=== PATIENT | male | born 1940 | race Caucasian/White ===

== ENCOUNTER 2019-10-02 18:55 | Inpatient (IN) ==
--- NOTE | 2019-10-02 19:20 | PROVIDER DOCUMENTATION ---
HPI-Neurological Disorder - General Chief Complaint: Stroke-Like Symptoms Stated Complaint: WEAKNESS (L) LEG, Time Seen by Provider: 10/02/19 19:10 Source: patient Allergies/Adverse Reactions: Patient Allergies Allergy/AdvReac Type Severity Reaction Status Date / Time codeine [Codeine] AdvReac Severe ANAPHYLAXIS Verified 07/16/19 09:19 morphine AdvReac Severe ANAPHYLAXIS Verified 07/16/19 09:19 Home Medications: Home Medication List Medication Instructions Recorded Confirmed Last Taken Type Ascorbic Acid [Vitamin C] 500 mg PO QHS 02/26/12 07/23/19 07/22/19 21:00 History Aspirin [Ecotrin] 81 mg PO QAM 02/26/12 07/23/19 07/20/19 08:00 History Calcium Carb/Vit D3/Minerals 1 each PO QAM 02/26/12 07/23/19 07/22/19 08:00 History [Calcium 600 + D Tablet] Cider Vinegar [Apple Cider Vinegar] 500 mg PO 02/26/12 07/16/19 07/22/19 21:00 History Cyanocobalamin (Vitamin B-12) 1,000 mcg PO QHS 02/26/12 07/23/19 07/22/19 21:00 History [Vitamin B-12] Garlic [Garlique] 5,000 mcg PO 02/26/12 07/16/19 07/22/19 21:00 History Losartan Potassium 50 mg PO QAM 02/26/12 07/16/19 07/22/19 08:00 History Metoprolol [Lopressor] 25 mg PO BID 02/26/12 07/16/19 07/23/19 06:30 History Multivitamin/Iron/Folic Acid 1 each PO QAM 02/26/12 07/16/19 07/22/19 08:00 History [Multi Complete-Iron Tablet] Ranitidine HCl [Zantac 75] 75 mg PO QAM 02/26/12 07/16/19 07/22/19 08:00 History Ubidecarenone/Vitamin E [Co Q-10 1 each PO QHS 02/26/12 07/16/19 07/22/19 21:00 History 50 mg Softgel] Cholecalciferol (Vitamin D3) 800 unit PO QAM 02/18/19 07/23/19 07/22/19 08:00 History [Vitamin D3] Montelukast [Singulair] 10 mg PO QAM 02/18/19 07/16/19 07/22/19 08:00 History Pramipexole Di-HCl [Pramipexole 0.25 mg PO BID 02/18/19 07/16/19 07/22/19 21:00 History Dihydrochloride] Trazodone [Desyrel] 50 mg PO QHS 02/18/19 07/16/19 07/22/19 21:00 History Fexofenadine [Loni] 180 mg PO QAM 07/16/19 07/16/19 07/22/19 08:00 History Furosemide [Lasix] 20 mg PO QAM 07/16/19 07/23/19 07/22/19 08:00 History Potassium Chloride 20 meq PO BID 07/16/19 07/16/19 07/22/19 21:00 History Tramadol HCl [Ultram] 50 mg PO Q4H PRN PRN #12 tab 07/23/19 Unknown Rx - History of Present Illness-Neuro Nature of Presenting Problem: 79 YOM with PMH of HTN, CHF, CAD s/p CABG, HLD presents with sudden onset dizziness, L side weakness, inability to move his left leg tonight at 5pm while working in the barn. He denies falls, is on a daily ASA. 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 He denies headache, diaphoresis, CP, N/V/D Severity: reports: mild Onset/Duration: reports: 1-3 hours ago Timing: reports: still present Approximate time patient was last seen normal?: 17:00 Character of Altered Mental Status: reports: N/A Any recent trauma/injury?: reports: none Character of Deficits: reports: new weakness, decreased ability to walk New weakness or altered sensation location:: reports: LUE, LLE. denies: right facial, left facial, ascending Cognitive Baseline: alert, oriented x3 Gait Baseline: uses a cane Associated Symptoms: reports: dizziness, weakness (L Sided) Similar Symptoms Previously?: Yes (years ago) Recently seen or treated by another doctor?: No Review of Systems - Adult - REVIEW OF SYSTEMS - ADULT Constitutional: reports: no symptoms reported. denies: chills, fever Eyes: reports: no symptoms reported. denies: decreased vision, blurred vision, double vision, eye pain Ears, Nose, Mouth & Throat: reports: no symptoms reported. denies: ear pain, epistaxis, mouth/dental pain, throat pain Cardiovascular: reports: no symptoms reported. denies: chest pain, palpitations, PND Respiratory: reports: no symptoms reported. denies: cough, dyspnea on exertion, shortness of breath, wheezing Gastrointestinal: reports: no symptoms reported. denies: abdominal pain, diarrhea, nausea, vomiting Genitourinary: reports: no symptoms reported. denies: dysuria, flank pain, frequent UTI's, hesitency Musculoskeletal: reports: no symptoms reported. denies: see HPI, bone pain, back pain, frequent leg cramps, joint pain, joint swelling, muscle aches, muscle weakness, neck pain, other Integumentary: reports: no symptoms reported. denies: see HPI, hives, hair loss, itching, mole changes, nail changes, rash, skin sores/ulcer, skin thickening, other Neurological: reports: see HPI, loss of balance, paresthesia, other (L side weakness) Psychiatric: reports: no symptoms reported. denies: see HPI, anxiety, anti- depressant use, alcohol/drug dependence, depression, emotional problems, insomnia, panic attacks, suicidal thoughts, other Endocrine: reports: no symptoms reported. denies: see HPI, change in skin pigment, excessive sweating, goiter, cold intolerance, heat intolerance, increased hunger, increased thirst, polyuria, other Hematologic/Lymphatic: reports: no symptoms reported. denies: see HPI, blood clots, easy bruising, low blood count, lymphedema, prolonged bleeding, swollen lymph nodes, transfusions, other Allergic/Immunologic: reports: no symptoms reported. denies: see HPI, allergic reactions, allergic rhinitis, asthma, eczema, food allergy, frequent infections, hay fever, hives, positive PPD, urticaria, other Past History - Adult - PAST MEDICAL HISTORY-ADULT Review of Records: reports: Nursing Assessment Review, Social history reviewed & non-contributory. Major Childhood Illnesses: reports: denies history Cardiovascular: reports: denies history Respiratory: reports: denies history Gastrointestinal: reports: denies history Obstetrical/Gynecological: reports: denies history Genitourinary: reports: denies history Musculoskeletal: reports: denies history Neurological: reports: denies history Endocrine/Immune: reports: denies history Other Conditions: reports: denies history - IMMUNIZATION STATUS Childhood Immunizations: See Nurse Assessment Flu Vaccine: See Nurse Assessment - FAMILY HISTORY Family History: reviewed, not pertinent Physical Exam- Neurological - Physical Exam-Neuro Initial Vital Signs Reviewed: Yes General Appearance: appears well, alert, no apparent distress Eye Exam: bilateral eye: normal inspection, PERRL, EOMI HENMT: normocephalic/atraumatic, moist mucous membranes, normal ENT inspection Head Injury: no evidence of injury Neck: non-tender, full range of motion, supple Respiratory: chest non-tender, lungs clear, normal breath sounds, no pleuratic chest pain, no respiratory distress, no accessory muscle use Cardiovascular: normal peripheral pulses, regular rate, rhythm, no edema, no gallop, no JVD, no murmur Abdominal Exam: normal bowel sounds, non tender, soft Lymphatic: no adenopathy Peripheral Pulses: radial (R): 2+, radial (L): 2+ Extremity: normal range of motion, non-tender, normal gait tester sound Exam: normal hearing, normal speech, PERRL. negative: abnormal speech, facial droop, facial weakness, tongue deviation to R, tongue deviation to L Coordination/Gait: normal finger to nose. negative: normal gait (uses cane) Motor/Sensory: no motor deficit, no sensory deficit, no pronator drift Neurologic: grossly normal. negative: aphasia, motor weakness, sensory deficit Integumentary: normal color, normal turgor, warm/dry Psych/Mental Status: normal mood/affect, oriented x 3 - Glascow Coma Scale Best Eye Response: (4) open spontaneously Best Verbal Response: (5) oriented Best Motor Response: (6) obeys commands Progress - PLAN OF CARE/RESULTS Progress/Plan/Lab Results: Vital Signs - 8 hr 10/02/19 19:07 Temperature 98.3 F Pulse Rate 76 Respiratory Rate 20 Blood Pressure 141/84 O2 Sat by Pulse Oximetry 98 Laboratory Results - last 24 hr 10/02/19 10/02/19 10/02/19 19:05 19:54 19:54 WBC RBC Hgb Hct MCV MCH MCHC RDW Std Deviation Plt Count MPV Immature Gran % (Auto) Neut % (Auto) Lymph % (Auto) Ware % (Auto) Eos % (Auto) Baso % (Auto) Immature Gran # (Auto) Neut # (Auto) Lymph # (Auto) Ware # (Auto) Eos # (Auto) Baso # (Auto) PT INR PTT (Actin FS) Sodium 141 Potassium 4.3 Chloride 101 Carbon Dioxide 25 Anion Gap 15 BUN 22 Creatinine 1.0 Estimated GFR/1.73 m2 > 60 BUN/Creatinine Ratio 22 Glucose 159 H POC Glucose 204 H Calculated Osmolality 288 Calcium 9.3 Total Bilirubin 0.39 AST 26 ALT 20 Alkaline Phosphatase 95 Troponin T High Sens 8 Total Protein 6.8 Albumin 3.9 Globulin 2.9 Albumin/Globulin Ratio 1.3 10/02/19 10/02/19 10/02/19 19:54 19:54 20:25 WBC 6.00 RBC 5.00 Hgb 14.5 Hct 43.9 MCV 87.8 MCH 29.0 MCHC 33.0 RDW Std Deviation 14.0 Plt Count 179 MPV 10.4 Immature Gran % (Auto) 0.0 Neut % (Auto) 59.6 Lymph % (Auto) 25.7 Ware % (Auto) 10.7 H Eos % (Auto) 3.7 Baso % (Auto) 0.3 Immature Gran # (Auto) 0.00 Neut # (Auto) 3.58 Lymph # (Auto) 1.54 Ware # (Auto) 0.64 H Eos # (Auto) 0.22 Baso # (Auto) 0.02 PT 13.1 INR 0.99 PTT (Actin FS) 27.0 Sodium Potassium Chloride Carbon Dioxide Anion Gap BUN Creatinine Estimated GFR/1.73 m2 BUN/Creatinine Ratio Glucose POC Glucose 125 H Calculated Osmolality Calcium Total Bilirubin AST ALT Alkaline Phosphatase Troponin T High Sens Total Protein Albumin Globulin Albumin/Globulin Ratio Orders Category Date Time Status Cardiac Monitoring DIRECTED Care 10/02/19 19:11 Active Finger Stick Blood Sugar (ED) DIRECTED Care 10/02/19 19:11 Active Saline Loc NOW Care 10/02/19 19:11 Active CHEST-PORTABLE [RAD] Stat Exams 10/02/19 19:[address] HEAD W/O CONTRAST [CT] Stat Exams 10/02/19 19:11 Completed CBC WITH ELECTRONIC DIFF [HEME] Stat Lab 10/02/19 19:54 Completed COMPREHENSIVE METABOLIC PANEL [CHEM] Stat Lab 10/02/19 19:54 Completed PROTIME WITH INR [COAG] Stat Lab 10/02/19 19:54 Completed PTT [COAG] Stat Lab 10/02/19 19:54 Completed TROPONIN T HIGH SENSITIVITY Stat Lab 10/02/19 19:54 Completed URINALYSIS W/POSS RFLX CULT [URINALYSIS] Stat Lab 10/02/19 19:11 Uncollected URINE DRUG SCREEN Stat Lab 10/02/19 19:11 Uncollected Aspirin Med 10/02/19 20:15 Discontinued 325 mg PO NOW ONE EKG [EKG] Stat Ther 10/02/19 19:11 Ordered Result Diagrams: 10/02/19 19:54 10/02/19 19:54 - EKG 1 Time of EKG reading by physician:: 20:20 EKG Read and Signed by:: Ana Paula Rubio EKG Interpretation (*Must complete 3 of following elements*): Abnormal Rate: 94 Rhythm: NSR [place]: normal QRS: normal OR Interval: normal ST Wave: non-specific ST changes Prior EKG Comparison: no prior EKG - XRAY 1 XRAY Study: Chest Impression: See EMR Report ( EXAM: CHEST-PORTABLE INDICATION: stroke like symptoms TECHNIQUE: One view COMPARISON: 09/02/2019 FINDINGS: There is minimal subsegmental atelectasis at the left lung base. The lungs are grossly clear, otherwise. There is no discrete pleural fluid collection or pneumothorax. There are stable CABG changes. The cardiomediastinal silhouette and central vasculature are unremarkable, otherwise. IMPRESSION: Mild left basilar subsegmental atelectasis. No definite acute chest pathology by plain radiograph, otherwise. Electronically signed by Virgilio Holder 10/02/2019 8:02 PM 10/02/192001 Interpreting Physician: Vigrilio Holder MD Dictated Date/Time: 10/02/192000 cc: Neva Carias; Jennifer Chaves MD) - CT/MRI 1 CT Study: Head Impression: See EMR Report ( EXAM: CT HEAD W/O CONTRAST INDICATION: stroke like symptoms TECHNIQUE: This exam was performed using automated exposure control, adjustment of mA or kV according to patient size, and/or use of iterative reconstruction technique. COMPARISON: None. FINDINGS: There is patchy low attenuation in the periventricular and subcortical white matter suggesting moderate microangiopathy. There is no definite acute infarct given the limited sensitivity of CT versus MRI. There is no discrete intracranial mass, mass effect, or intracranial hemorrhage. There is mild ethmoid and left maxillary sinus mucosal thickening. Surrounding soft tissues and bony structures are essentially unremarkable, otherwise. IMPRESSION: Moderate chronic appearing white matter changes as described. No definite acute intracranial pathology by CT. Electronically signed by Virgilio Holder 10/02/2019 7:39 PM 10/02/191938 Interpreting Physician: Virgilio Holder MD Dictated Date/Time: 10/02/191937 cc: Neva Carias; Jennifer Chaves MD) - CONSULTS/PCP/HOSPITALIST Notification #1 *Consult/PCP/Hospitalist*: Dr. Mayer Time Discussed: 21:03 Consult Disposition: Admit (TIA) Departure - Departure Date of Disposition Decision: 10/02/19 Time of Disposition Decision: 21:03 DIAGNOSIS: TIA (transient ischemic attack) Disposition: ADMITTED INPATIENT 09 Certified Medical Emergency: Emergent Condition: Stable Referrals and Follow-Ups: Jennifer Chaves MD [Primary Care Provider] - - Critical Care Note This patient required my direct & personal management of CC.: No Attestation - Physician/ MARJ Attestation Patient care was provided by Advanced Practice Provider:: Yes Advanced Practice Provider:: Neva Carias Advanced Practice Provider documentation review:: The Mid-level provider documentation, treatment plan and medical decision making was reviewed by the physician who agrees with all treatment and medical decision making by the P. The physician spent face to face time with patient:: Yes (Dr. Rubio) Advanced Practice Provider documentation review:: Supervising physician onsite and consulted in the evaluation and care of this patient. The physician did have a face to face encounter with the patient. - NIH Stroke Scale NIH Type: Initial Evaluation Level of Consciousness: 0-Alert LOC Questions (ask month and age): 0-Answers Both Correctly LOC Commands (ask to open & close eyes;make a fist, let go): 0-Obeys Both Correctly Best Gaze (horizontal eye movement): 0-Normal Visual (use finger movement, counting or visual threat): 0-No Visual Loss Facial Palsy (show teeth or raise eyebrows & close eyes tght: 0-Symmetrical Movement Motor Function-left arm: 0-Normal Motor Function-right arm: 0-Normal Motor Function-left le-Normal Motor Function-right le-Normal Limb Ataxia(cepzia-zual-qmzmls, or heel to davis): 0-No Ataxia Sensory(pin prick to face,arms,trunk,legs-compare side/side): 0-No Ataxia Best Language(name item/read sentence.Ex-Down to Earth): 0-No Aphasia Dysarthria(Pt read words or say words Ex.Mama,Tip-Top,Thanks: 0-Normal Articulation Extinction and Inattention: 0-Normal NIH Total Score: 0 Stroke tPA Guidelines - Inclusion Criteria for IV tPA 18 years old or older: Yes Ischemic stroke with measurable deficit: No Onset <3 hours ago *OR* 3-4.5 hours ago: No - Exclusion Criteria for IV tPA Evidence of intracranial hemorrhage on CT: No Presentation suggest SAH: No CT reveals defined area of hypodensity: No Evidence of AVM, neoplasm, aneurysm: No Seizure at stroke onset: No Active internal bleeding or acute trauma: No Platelet Count Less Than 100,000: No Heparin Within Last 48 HRS (PTT >Lab normal limits): No INR > 1.7 (warfarin use): No Use IIB/IIIA inhibitors within 24 hours: No Serious Head Trauma Within Last 3 Months: No Arterial Puncture Within Last 7 Days: No Lumbar Puncture Within Last 7 Days: No Repeated systolic Blood Pressure >185 or Diastolic >110: No - Additional Exclusion Criteria for IV tPA Currently on Coumadin: No Patient older than 80: Yes Prior stroke and diabetes: No Baseline NIHSS score > 25: No
--- NOTE | 2019-10-02 19:42 | Diag Imaging Result Doc PS360 ---
EXAM: CT HEAD W/O CONTRAST INDICATION: stroke like symptoms TECHNIQUE: This exam was performed using automated exposure control, adjustment of mA or kV according to patient size, and/or use of iterative reconstruction technique. COMPARISON: None. FINDINGS: There is patchy low attenuation in the periventricular and subcortical white matter suggesting moderate microangiopathy. There is no definite acute infarct given the limited sensitivity of CT versus MRI. There is no discrete intracranial mass, mass effect, or intracranial hemorrhage. There is mild ethmoid and left maxillary sinus mucosal thickening. Surrounding soft tissues and bony structures are essentially unremarkable, otherwise. IMPRESSION: Moderate chronic appearing white matter changes as described. No definite acute intracranial pathology by CT. Electronically signed by Virgilio Holder 10/02/2019 7:39 PM
--- NOTE | 2019-10-02 20:05 | Diag Imaging Result Doc PS360 ---
EXAM: CHEST-PORTABLE INDICATION: stroke like symptoms TECHNIQUE: One view COMPARISON: 09/02/2019 FINDINGS: There is minimal subsegmental atelectasis at the left lung base. The lungs are grossly clear, otherwise. There is no discrete pleural fluid collection or pneumothorax. There are stable CABG changes. The cardiomediastinal silhouette and central vasculature are unremarkable, otherwise. IMPRESSION: Mild left basilar subsegmental atelectasis. No definite acute chest pathology by plain radiograph, otherwise. Electronically signed by Virgilio Holder 10/02/2019 8:02 PM
[2019-10-02 20:14] LABS: BASO# 0.02 X1000 (0.0-0.2); BASO% 0.3 % (0.0-0.8); EOS# 0.22 X1000 (0.0-0.7); EOS% 3.7 % (0.0-10.0); HEMATOCRIT 43.9 % (42.0-52.0); HEMOGLOBIN 14.5 g/dL (14.0-18.0); LYMPH# 1.54 X1000 (1.2-3.4); LYMPH% 25.7 % (20.5-51.1); MCV 87.8 FL (81-99); MONO# 0.64 X1000 (0.11-0.59); MONO% 10.7 % (1.7-9.3); MPV 10.4 FL (7.4-10.4); NEUT# 3.58 X1000 (1.4-6.5); NEUT% 59.6 % (42.2-75.2); PLT 179 X1000 (130-400)
[2019-10-02] MEDS ORDERED: ASPIRIN PO ONE (20:15)
[2019-10-02 20:22] LABS: INR 0.99; PROTIME 13.1 Seconds (11.0-16.0)
[2019-10-02 20:44] LABS: AGAP 15; ALB/GLOB RATIO 1.3; ALBUMIN 3.9 g/dL (3.5-5.0); ALKALINE PHOSPHATASE 95 U/L (32-122); BUN 22 mg/dL (8-22); CALCIUM 9.3 mg/dL (8.8-10.2); CHLORIDE 101 mmol/L (98-107); COSMO 288; ESTIMATED GFR > 60; GLUCOSE 159 mg/dL (70-104); GOT 26 U/L (10-34); GPT 20 U/L (10-44); POTASSIUM 4.3 mmol/L (3.5-5.1); SODIUM 141 mmol/L (136-145); TCO2 25 mmol/L (25-35); TOTAL BILIRUBIN 0.39 mg/dL (0.20-1.00); TOTAL PROTEIN 6.8 g/dL (6.3-8.3)
[2019-10-02 21:18] LABS: URINE SOURCE CLEAN CATCH
[2019-10-02 22:02] LABS: BILIRUBIN URINE NEGATIVE (NEGATIVE); BLOOD URINE NEGATIVE (NEGATIVE); COLOR YELLOW; GLUCOSE URINE NEGATIVE (NEGATIVE); KETONE URINE NEGATIVE (NEGATIVE); LEUKOCYTES URINE NEGATIVE (NEGATIVE); NITRITE URINE NEGATIVE (NEGATIVE); PROTEIN URINE NEGATIVE (NEGATIVE); SP GRAVITY URINE 1.025; TURBIDITY URINE CLEAR (CLEAR); UROBILINOGEN URINE NORMAL (NORMAL)
[2019-10-02 22:06] LABS: UR EPITHELIAL CELLS <10 /HPF (<10); URINE RBC <10 /HPF (<10); URINE WBC <10 /HPF (<10)
[2019-10-02 22:07] LABS: URINE BACTERIA NEGATIVE /HPF
[2019-10-02 22:27] LABS: UR AMPHETAMINES QUAL NONE DETECTED (NONE DETECT); UR BARBITUATES QUAL NONE DETECTED (NONE DETECT); UR BENZODIAZEPIN QUAL NONE DETECTED (NONE DETECT); UR CANNABINOIDS QUAL NONE DETECTED (NONE DETECT); UR COCAINE QUAL NONE DETECTED (NONE DETECT); UR METHADONE QUAL NONE DETECTED (NONE DETECT); UR OPIATES QUAL NONE DETECTED (NONE DETECT); UR OXYCODONE QUAL NONE DETECTED (NONE DETECT); UR PCP QUAL NONE DETECTED (NONE DETECT)
--- NOTE | 2019-10-02 22:33 | HISTORY AND PHYSICAL ---
PRIMARY CARE PROVIDER: Jennifer Chaves MD CHIEF COMPLAINT: Left-sided weakness. HISTORY OF PRESENTING ILLNESS: An 79-year-old male with a history of hypertension, CHF and coronary artery disease, who presented to the emergency department with 1-day history of left- sided weakness. The patient states that it started earlier. He felt his leg feel numb and he could not move it. He states that he nearly fell and got concerned, and subsequently had come to the emergency department. In the ED he was evaluated and it seems that his symptoms have resolved; however, due to his presenting symptoms he will require admission for further management. At the time of my examination the patient denied any headache, fever, chills, chest pain, shortness of breath, hemoptysis, melena or weight changes. States he feels better. PAST MEDICAL HISTORY: Includes hypertension, CHF, coronary artery disease. PAST SURGICAL HISTORY: Coronary artery bypass. ALLERGIES: Morphine and codeine. MEDICATIONS: Current medications include aspirin 81 mg p.o. daily, losartan 50 mg p.o. q.a.m., metoprolol 25 mg p.o. b.i.d., ranitidine 75 mg p.o. q.a.m., Singulair 10 mg p.o. q.a.m., pramipexole 0.25 mg p.o. b.i.d., trazodone 50 mg p.o. at bedtime, Lasix 20 mg p.o. q.a.m., tramadol 50 mg p.o. q.4 hours p.r.n. SOCIAL HISTORY: He is a former smoker. History of alcohol use in the past. Denies any illicit drug use. FAMILY HISTORY: No history of coronary disease. REVIEW OF SYSTEMS: Fourteen-point review of systems is as listed in HPI. Other systems negative. PHYSICAL EXAMINATION: GENERAL: Cooperative, friendly male. He is resting more comfortably now. He is speaking in complete sentences. VITAL SIGNS: Temperature 98.3 degrees, pulse 76, respirations 20, blood pressure 141/84. HEENT: Atraumatic, normocephalic. Extraocular movements intact. PERRLA. NECK: Supple. CHEST: Clear to auscultation. CARDIOVASCULAR: Regular rate and rhythm. ABDOMEN: Soft. Positive bowel sounds. EXTREMITIES: No edema. NEUROLOGIC: He is awake, alert and oriented x3. Speech is intact. Strength 5/5 in all extremities. GENITOURINARY: No bladder distention. SKIN: Warm. LABORATORY DATA: Sodium 141, potassium 4.3, chloride 101, CO2 is 25, BUN is 22, creatinine is 1.0, glucose 159. WBC 6.0, hemoglobin 14.5, hematocrit 43.9, platelets 179,000. DIAGNOSTIC DATA: CT of the head: Moderate chronic-appearing white matter changes. No acute intracranial pathology. ASSESSMENT: This is an 79-year-old elderly male with a history of hypertension, congestive heart failure and coronary artery disease, who presented to the emergency department with 1-day history of having left-sided weakness. He was evaluated in the emergency department, and due to his presenting symptoms he will need admission for further management. 1. Transient ischemic attack. Will need to rule out cerebrovascular accident. 2. Coronary artery disease. 3. Hypertension. PLAN: 1. We will admit the patient to the medical floor with telemetry. 2. Continue with stroke workup. 3. We will check an MRI of the brain. 4. Consult Neurology. 5. Restart other home medications. Monitor on telemetry. 6. We will monitor blood pressure closely. 7. We will put the patient on DVT prophylaxis with SCDs. 8. We will continue to follow, reassess and make further recommendations based on the patient's clinical course. cc: Kee Mayer MD
--- NOTE | 2019-10-02 23:07 | EKG Report ---
Test Performed on : 10/02/2019 8:16:16 PM Test Reason : Stroke like symptoms Blood Pressure : / mmHG Vent. Rate : 094 BPM Atrial Rate : 094 BPM P-R Int : 208 ms QRS Dur : 102 ms QT Int : 450 ms P-R-T Axes : 000 -20 -25 degrees QTc Int : 562 ms Normal sinus rhythm. Nonspecific ST and T wave abnormality Abnormal ECG When compared with ECG of 02-OCT-2019 20:15, (Unconfirmed) OH interval has decreased Nonspecific T wave abnormality has replaced inverted T waves in Inferior leads T wave inversion no longer evident in Lateral leads Unconfirmed Result
[2019-10-03 07:25] LABS: BASO# 0.03 X1000 (0.0-0.2); BASO% 0.5 % (0.0-0.8); EOS# 0.25 X1000 (0.0-0.7); HEMOGLOBIN 14.3 g/dL (14.0-18.0); LYMPH# 1.73 X1000 (1.2-3.4); LYMPH% 27.6 % (20.5-51.1); MCH 28.3 PG (27-31); MCHC 32.5 g/dL (33-37); MCV 87.1 FL (81-99); MONO# 0.55 X1000 (0.11-0.59); MONO% 8.8 % (1.7-9.3); MPV 10.4 FL (7.4-10.4); NEUT% 59.1 % (42.2-75.2); PLT 170 X1000 (130-400); RBC 5.05 XMIL (4.7-6.1); RDW 13.7 % (11.5-14.5); WBC 6.26 X1000 (4.8-10.8)
[2019-10-03 07:57] LABS: AGAP 10; BUN 21 mg/dL (8-22); CALCIUM 8.8 mg/dL (8.8-10.2); CHLORIDE 103 mmol/L (98-107); COSMO 282; CREATININE 0.8 mg/dL (0.7-1.2); ESTIMATED GFR > 60; GLUCOSE 91 mg/dL (70-104); POTASSIUM 4.1 mmol/L (3.5-5.1); SODIUM 140 mmol/L (136-145); TCO2 27 mmol/L (25-35)
[2019-10-03] MEDS ORDERED: LASIX PO SCH (09:00)
[2019-10-03] MEDS ORDERED: ASPIRIN PO SCH (09:00)
[2019-10-03] MEDS ORDERED: LOPRESSOR PO SCH (09:00)
[2019-10-03] MEDS ORDERED: COZAAR PO SCH (09:00)
--- NOTE | 2019-10-03 11:51 | Diag Imaging Result Doc PS360 ---
EXAM: MRI BRAIN W/WO CONTRAST INDICATION: stroke COMPARISON: CT head dated 10/02/2019 FINDINGS: There is a tiny focus of restricted diffusion associated with the right basal ganglion on image 18 of series 8 suggesting a very small acute lacunar infarct. This cannot be appreciated on the recent CT. There is associated slight increased T2/FLAIR signal in this region. There is patchy T2/FLAIR hyperintensity in the periventricular and subcortical white matter is well suggesting at least moderate microangiopathy. There is decreased cortical signal associated with the anterior frontal lobes bilaterally but much more prominent on the left that is best seen on the coronal T2 gradient sequence. This may represent a trace hemosiderin from a distant focal hemorrhage in the past. There is no evidence of acute hemorrhage. No intracranial mass or mass effect is appreciated. There is no evidence of abnormal intracranial enhancement. There is mild ethmoid and left maxillary sinus mucosal thickening. Surrounding soft tissues and bony structures are essentially unremarkable, otherwise. IMPRESSION: 1.Tiny acute lacunar infarct involving the right basal ganglion. 2.Evidence of moderate white matter microangiopathy. 3.Low attenuation mainly on gradient involving the cortex of the frontal lobes bilaterally, mainly on the right, which could represent trace hemosiderin related to a distant hemorrhage. Electronically signed by Virgilio Holder 10/03/2019 11:48 AM
[2019-10-03] MEDS ORDERED: ULTRAM PO PRN (12:42)
[2019-10-03] MEDS: LIPITOR PO SCH (13:41)
--- NOTE | 2019-10-03 14:32 | NEUROLOGY CONSULTATION ---
DATE: 10/03/2019 HISTORY OF PRESENT ILLNESS: Mr. Olmos is 79 years old and it sounds like he had acute ischemic neurologic event yesterday. History from the patient is that he was working in his barn and feeling well. He noticed sudden onset of left leg weakness and gait difficulty. Speech was slurred. He used a piece of cedar as a walking cane to help him get back into the house. He rested and within 45 minutes felt completely recovered. There was never vision disturbance, facial asymmetry, trouble chewing or swallowing, headache, altered awareness, unconsciousness. He did not fall. He continues to feel completely recovered today. He reports no prior similar spells. He reports being told he might have had a stroke in the past, but he does not recall details. He does not recall any prior focal neurologic deficit. There is no history of serious head injury. He has never had a seizure. He denies ethanol abuse. He quit smoking cigarettes in the remote past. He takes medicine for hypertension. He reports he took a medicine for cholesterol in the past and did not tolerate that, so has managed with nonprescription product recently. He has never had diabetes mellitus diagnosed. There is history of CABG. I reviewed his home medication list. He told me supervises that and he is not certain about details, but believes he takes everything as directed. He believes he has not taken the tramadol recently. He does take daily aspirin. Workup here includes brain MRI today showing evidence of small acute infarction in the right basal ganglia. There are the usual scattered white matter changes bilaterally. He has had carotid ultrasound and echocardiogram, and those reports are pending. Lab shows blood sugars 100s to 200s. Chemistry is otherwise unremarkable. Urine drug screen was all negative. He has been afebrile. Heart rate has been stable, 70s-80s. Systolic blood pressures have ranged 130s-150s. On exam now, Mr. Olmos is awake, alert, attentive, appropriate. Speech is not significantly dysarthric. Language function is intact on brief bedside testing. Recent and remote memory are good. He is oriented. Head and neck are unremarkable. Visual marrero are full to confrontational finger counting. Extraocular movements are full. Facial motility is a little bit diminished bilaterally, but symmetric. Facial sensation is intact to pinprick and light touch testing. Gag is intact. Tongue is midline. He can hear. He has some shoulder joint problems, a little worse on the right, but good shoulder shrug bilaterally. Strength is normal in the arms and legs. He did well on finger- to-nose testing bilaterally. He reports good pinprick and light touch appreciation over the hands and legs symmetrically. Reflexes 1+ symmetrically at the wrists, 2+ at the knees, trace at the ankles. Plantar response is silent bilaterally. IMPRESSION: History of transient left-sided weakness and slurred speech, all resolving in less than an hour. There is imaging evidence of acute subcortical non dominant right hemisphere infarction to account for this deficit. He has risk factors as outlined above, and he may also have diabetes mellitus based on the blood sugars recorded here. I do not have any urgent suggestions. Further plans will depend on the carotid and echocardiogram reports. If these are not remarkable, I would plan to discharge him with his daily aspirin and aggressive management of his other risk factors. Since his deficit has completely resolved and there is imaging evidence of small subcortical lesion, I do not think we have to permit hypertension at this point. A case could be made for adding clopidogrel short-term, but I don't think the data are sufficient to make that recommendation with presumed small vessel disease. He should have aggressive blood sugar evaluation and treat diabetes mellitus, if present. I will be glad to see Mr. Olmos as an outpatient, if needed. Thanks for asking Neurology to see him. cc: MD WIL Godwin III
[2019-10-03 15:43] LABS: HEMOGLOBIN A1C 5.6 % (4.8-6.0)
--- NOTE | 2019-10-03 18:26 | PROGRESS NOTE ---
DATE: 10/03/2019 INTERVAL HISTORY: No acute events overnight. Mr. Olmos denies new complaints. He states he does not have any more weakness of the left upper or lower extremities. He states when he presented initially, he had left lower extremity weakness, but after coming to the emergency room he has resolved. We discussed about MRI finding stroke. We discussed about risk factor for stroke. We discussed about treating him for high cholesterol. We discussed about pending echocardiogram ultrasound carotid results. I answered all of his questions. VITALS: Temperature 98.4 degrees, pulse 101, respiratory rate 18, blood pressure 156/85, saturating 98% on room air. PHYSICAL EXAMINATION: Mr. Olmos is not in acute distress. Oral cavity is moist. Lungs: Air entry bilaterally equal. Cardiovascular: No wheeze, rhonchi, crackles. S1, S2 normal. No murmur, rub, or gallop. Abdomen: Soft, nontender. No lower extremity edema. He is alert and oriented x3. His pupils are bilaterally equal reacting to light. Extraocular movement is intact both vertically and horizontally. No facial asymmetry. Shoulder shrug is normal. Speech and cough is normal without any dysarthria. His sensation intact bilateral face. Upper and lower extremities: His tone is equal and adequate bilaterally. His power is 5/5 bilateral upper and lower extremity. He is alert and oriented x3 without any confusion. LABORATORIES: Remarkable for hemoglobin A1c of 5.6, cholesterol of 168, LDL of 132. No microbiological data. IMAGING: Brain MRI suggests tiny acute lacunar infarct involving right basal ganglia, moderate white matter microangiopathy. ASSESSMENT AND PLAN: 1. 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 He does not have any more residual abnormality neurologically on gross examination. We discussed about risk factor modification including weight reduction, treating his cholesterol, taking better control of blood pressure. He is in agreement with it. Continue low-dose aspirin and atorvastatin. Follow up echocardiogram, ultrasound carotid results. 2. History of coronary artery bypass graft. Continue home metoprolol, losartan, aspirin. 3. Others. Continue home ascorbic acid, trazodone, calcium, vitamin D supplementation and vitamin B12 supplementation with multivitamins. DISPOSITION: I am awaiting echocardiogram and ultrasound carotid results. Based on that, I would anticipate discharge in next 24 hours. Plan of care discussed with Mr. Olmos. He is in agreement with the plan. His questions have been answered. cc: Sky Barboza MD
[2019-10-03] MEDS ORDERED: VITAMIN C PO SCH (21:00)
[2019-10-03] MEDS ORDERED: DESYREL PO SCH (21:00)
[2019-10-03] MEDS: MIRAPEX PO SCH (21:33)
[2019-10-03] MEDS: LOPRESSOR PO SCH (21:33)
[2019-10-04] MEDS: LIPITOR PO SCH (08:21)
[2019-10-04] MEDS: LOPRESSOR PO SCH (08:22)
[2019-10-04] MEDS: MIRAPEX PO SCH (08:22)
[2019-10-04] MEDS ORDERED: ALLEGRA PO SCH (09:00)
[2019-10-04] MEDS ORDERED: KLOR-CON PO SCH (09:00)
[2019-10-04] MEDS ORDERED: VITAMIN B-12 PO SCH (09:00)
[2019-10-04] MEDS ORDERED: ASPIRIN EC PO SCH (09:00)
[2019-10-04] MEDS ORDERED: SINGULAIR PO SCH (09:00)
[2019-10-04] MEDS ORDERED: CENTRUM TABLET PO SCH (09:00)
[2019-10-04] MEDS ORDERED: COZAAR PO SCH (09:00)
[2019-10-04] MEDS ORDERED: CALTRATE 600 + D PO SCH (09:00)
[2019-10-04] MEDS ORDERED: VITAMIN D PO SCH ×2 (09:00)
[2019-10-04 12:27] VITALS: BP 124/76
--- NOTE | 2019-10-04 14:00 | Diag Imaging Result Doc PS360 ---
EXAM: CT ANGIOGRAM HEAD/NECK HISTORY: Recent right basal ganglia CVA. TECHNIQUE: 1. CT angiogram neck with intravenous contrast. Arteriogram protocol with MIP images. 2. CT angiogram head with intravenous contrast. Arteriogram protocol with MIP images. COMPARISON: None. FINDINGS: Angiogram neck: Normal right common carotid artery. Small amount of plaque in the bulb. Narrowing less than 40%. Moderate plaque in the mid and distal left common carotid artery with narrowing of 40%. Plaque in the bulb with narrowing of 40%. Normal flow within each vertebral artery. Angiogram head: Normal flow within each distal internal carotid artery. Normal filling of the anterior and middle cerebral arteries. Normal flow in the basilar artery and posterior cerebral arteries. No occlusion. No stenosis. No aneurysm. IMPRESSION: Neck: Mild stenosis within each proximal internal carotid artery and the distal left common carotid artery approaching 40%. Head: No occlusion or stenosis within the [place]. This exam was performed using automated exposure control, adjustment of mA or kV according to patient size, and/or use of iterative reconstruction technique. Electronically signed by Faraz Chinchilla 10/04/2019 1:58 PM
--- NOTE | 2019-10-04 14:27 | ECHO REPORT ---
ORDER DATE: 10/03/2019 INDICATION FOR THE STUDY: CVA. Evaluate for thrombus. FINDINGS: 1. The right atrium is poorly visualized. 2. Mild tricuspid regurgitation. Insufficient data to accurately estimate the RV systolic pressure. 3. Normal RV size and systolic function. 4. Mild pulmonic insufficiency. 5. Normal left atrial size. Measured at 3.8 cm. 6. No mitral valve prolapse. Trace mitral regurgitation. No evidence of mitral stenosis. 7. Normal LV size, end-diastolic dimension of 4.8 cm. Normal wall thicknesses with intraventricular septal wall thickness of 1 cm. Normal ejection fraction estimated at 55%. Segmental wall motion analysis is very difficult on this study due to poor resolution of the endocardial borders as well as multiple off axis views. There is the suggestion of inferior basilar and inferior mid hypokinesis. This has been noted on previous studies. 8. Aortic valve appears to open well although it does appear sclerotic. It is not stenotic. There is mild insufficiency. The valve is trileaflet. 9. Aorta appears normal in visualized segments. 10. No pericardial effusion seen. cc: MD Sky Michel MD MTDD
--- NOTE | 2019-10-04 16:53 | DISCHARGE SUMMARY ---
ADMISSION DATE: 10/02/2019 DISCHARGE DATE: 10/04/2019 DISCHARGE DISPOSITION: Home. DISCHARGE CONDITION: Hemodynamically stable. He is alert and oriented x3. He does not have any sensory or motor deficit on any of the limbs. He does not have any facial asymmetry. His speech is normal. He does not have dysdiadochokinesia. DISCHARGE DIAGNOSIS: Acute CVA of the right basal ganglia. OTHER DIAGNOSES: 1. History of coronary artery disease status post coronary artery bypass graft. 2. Essential hypertension. 3. Insomnia. 4. Vitamin D deficiency. DISCHARGE MEDICATIONS: 1. Trazodone 50 mg at nighttime. 2. Ascorbic acid 500 mg at nighttime. 3. Fluticasone 1 spray inhaled b.i.d. 4. Fexofenadine 180 mg in the morning time. 5. Calcium vitamin D 1 tablet in the morning time. 6. Co-Q-10 at 100 mg at nighttime. 7. Aspirin 81 mg daily. 8. Furosemide 20 mg in the morning time. 9. Metoprolol 25 mg b.i.d. 10. Losartan 50 mg in the morning time. 11. Potassium 10 mEq daily. 12. Pramipexole 0.25 mg b.i.d. 13. Montelukast 10 mg in the morning time. 14. Vitamin D2, vitamin B12, and vitamin D3 one tablet daily. 15. Ranitidine 150 mg in the morning time. 16. Atorvastatin 40 mg daily; 30 tablets have been prescribed. 17. Tramadol 50 mg every 4 hours as needed for pain. PHYSICAL EXAMINATION: Vital signs At the time of discharge: Temperature 98.1 degrees, pulse 81, respiratory rate 18, blood pressure 124/76, saturating 94% on room air. general: Mr. Olmos is not in acute distress. heent: Oral cavity is moist. pulmonary: Air entry bilaterally equal. No wheeze or crackles. Cardiovascular: S1 and S2 normal. No gallop. Abdomen: Soft, nontender. Extremities: No lower extremity edema. Neurologic: He is alert and oriented x3. His pupils are bilaterally equal and reacting to light. Extraocular movements are intact horizontally and vertically. His visual acuity is grossly normal. No facial asymmetry. He has soft palate elevation. Speech and cough are intact. His shoulder shrug is bilaterally equal and adequate. His sensations are intact and adequate on crude touch to both upper and lower extremities. His power is 5/5 in both upper and lower extremities' all joints including, ankles and wrists. He does not have dysdiadochokinesia. LABORATORIES AT THE TIME OF DISCHARGE: WBC 6.2, hemoglobin 14.3, platelet 170,000. Potassium 4.1, sodium 140, BUN 21, creatinine 0.8. Cholesterol profile had total cholesterol of 168, LDL of 132. Urinalysis and urine toxicology were negative. MICROBIOLOGY AT THE TIME OF DISCHARGE: None. IMAGING DURING HOSPITAL ADMISSION: Chest x-ray on admission had mild left basilar subsegmental atelectasis without an acute pathology. Head CT on presentation had moderate chronic-appearing white matter changes without any intracranial pathology. Brain MRI had tiny acute lacunar infarct involving right basal ganglia, evidence of moderate white matter microangiopathy, and low attenuation mainly in the gradient involving cortex of the frontal lobes bilaterally mainly on the right which could represent trace hemosiderin related to a distant hemorrhage. Echocardiogram had normal LV size and normal wall thickness with ejection fraction of 55% without any intracardiac thrombus or mitral stenosis. Head and neck CT had mild stenosis within each proximal internal carotid artery and distal common carotid artery approaching about 40%. There was no occlusion or stenosis in [place]. Electrocardiogram on presentation had normal sinus rhythm and nonspecific ST-T wave abnormality. CONSULTATION DURING HOSPITAL ADMISSION: Neurology, Dr. Ellison. HOSPITAL COURSE SUMMARY: Mr. Olmos is an 79-year-old man who presented with history of hypertension and coronary artery disease who presented in the emergency department with one-day history of left-sided weakness which had started on the morning of the day of presentation. Apparently, the patient presented to the hospital around several hours later in the evening at about 7:15 p.m. The patient reported that in the morning time he certainly had started feeling weakness of the left lower extremity and he was not able to lift his leg and had to drag. His symptoms did not improve, so he decided to come to the hospital. He was definitely out of window for tPA. However, when he presented to the emergency room his symptoms had improved. In the emergency room he was found have a temperature of 98.3 degrees, pulse of 76, respiratory rate of 20, blood pressure of 141/84, and he was saturating 98% on room air. His head CT was negative for intracranial hemorrhage and he was admitted for stroke workup which detected right basal ganglia stroke. So atorvastatin was added for secondary cerebrovascular accident prophylaxis. Neurology had also seen the patient and had recommended continued aspirin with atorvastatin. At the time of discharge the patient was provided detailed discharge instructions, including stopping any tobacco products, blood pressure management, diabetes screening, continuing aspirin and atorvastatin, and he was advised to have a discussion and follow-up visit with regular physician within 5 days of discharge. He understood it. TOTAL TIME SPENT: Twenty-five minutes were spent discharging this patient. cc: Sky Barboza MD
[2019-10-04] MEDS ORDERED: PEPCID PO SCH (21:00)
--- NOTE | 2019-10-06 14:21 | Carotid Study ---
DATE: 10/03/2019 PROCEDURE: Bilateral carotid duplex. AIRLINE PILOT FLIGHT INSTRUCTOR: Madelin. REQUESTING PHYSICIAN: Jabari. INDICATIONS: Evaluate for carotid atherosclerosis. FINDINGS: Bilateral carotid artery systems were visualized. In the right distal common carotid artery extending in the bulb there is a focal area of atherosclerotic changes, but normal velocities. In the left, there is a more heterogeneous broad-based plaque extending from the distal common carotid artery through involving the proximal internal carotid artery, but again velocities are normal, vertebrals antegrade. IMPRESSION: Mild degree of atherosclerotic changes noted bilaterally with antegrade vertebrals. Estimated 0 to 39 percent stenoses bilateral. cc: MD Sky Phan MD
== END 2019-10-04 15:41 | disposition home or self-care (01) | DRG 65 ==
LOC: ED 18:55 → 3N 22:06 → SUATTDRO 22:06
PROVIDERS: ATTEND Internal Medicine